=== PATIENT | female | born 2000 | race Caucasian/White ===

== ENCOUNTER 2025-01-07 10:08 | Outpatient (OUT) | payer OTHER, SELFPAY | END 2025-01-07 10:09 | disposition home or self-care (01) | LOC: PST 10:09 | PROVIDERS: PCP Nurse Practitioner Family; Visit Provider Obstetrics & Gynecology | DX: Z01.818 Encounter for other preprocedural examination (principal); R10.2 Pelvic and perineal pain; N92.1 Excessive and frequent menstruation with irregular cycle; N94.6 Dysmenorrhea, unspecified; N94.10 Unspecified dyspareunia ==

== ENCOUNTER 2025-01-17 08:26 | Day surgery (SDC) | payer OTHER, SELFPAY ==
[2025-01-07 10:38] VITALS: BP 116/81; PULSE 69; TEMP 36.3; O2SAT 99; BMI 32.4
[2025-01-17] VITALS (13 sets, daily range): BP systolic 110–138; BP diastolic 59–82; PULSE 74–100; TEMP 36–36.4; O2SAT 96–100; BMI 32.4
[2025-01-17 08:36] LABS: Basophils Percent Auto 0.3 % (0.2-2.0); Eosinophils Absolute Auto 0.2 10^3/uL (0.0-0.7); Eosinophils Percent Auto 1.5 % (0.9-7.0); Hematocrit 43.1 % (36.0-48.0); Hemoglobin 13.8 g/dL (12.0-16.0); Immature Granulocytes Abs Auto 0.04 10^3/uL (0.00-0.03); Immature Granulocytes Pct Auto 0.4 % (0.0-0.5); Lymphocytes Absolute Auto 2.5 10^3/uL (1.2-3.8); Mean Corpuscular Hemoglobin 28.3 pg (26.7-34.0); Mean Corpuscular Volume 88.3 fL (81.0-99.0); Mean Platelet Volume 10.2 fL (9.5-13.5); Monocytes Absolute Auto 0.7 10^3/uL (0.3-0.8); Monocytes Percent Auto 7.6 % (1.7-12.0); Neutrophils Absolute Auto 6.2 10^3/uL (1.4-6.5); Neutrophils Percent Auto 64.2 % (43.0-75.0); Platelet Count 256 10^3/uL (150-450); Red Blood Count 4.88 10^6/uL (4.20-5.40); Red Cell Distribution Width 13.9 % (11.0-15.0); White Blood Count 9.7 10^3/uL (4.0-11.0)
[2025-01-17 08:59] LABS: Glucometer 99 mg/dL (74-106)
[2025-01-17] MEDS: LACTATED RINGER'S SOLUTION 1,000 ML 50 ML IV ×2 (09:02→11:02)
[2025-01-17] MEDS: SCOPOLAMINE 1 MG/3 DAYS TRANSDERM PATCH 1 PATCH TD (09:11)
[2025-01-17 09:28] LABS: HCG Quantitative <1 mIU/mL
--- NOTE | 2025-01-17 11:30 | P.ON_ITS ---
Brief Operative Note Date of procedure: 01/17/25 Pre-op diagnosis general: pelvic pain Post-op diagnosis: same as pre-op Procedure: NAME OF PROCEDURE: [diagnostic laparoscopy ] PROCEDURE: The patient was taken back to the Operating Room where she was placed in dorsal lithotomy position after given general anesthesia. The patient was prepped and draped in normal sterile fashion. A sponge stick was placed into the patient's vagina. Attention was turned to the patient's abdomen, where a small umbilical incision was made. The fascia was tented using Irma clamps and the fascia was entered sharply. Confirmation of intraabdominal placement of the 10 mm port was confirmed under direct visualization using a laparoscope. The patient's abdomen was then insufflated using CO2 gas with approximately 4 liters. A second port was placed left laterally, this was done under direct visualization with a 5 mm port. Survey of the patient's abdomen demonstrated normal liver and gallbladder. Survey of the patient's pelvic anatomy demonstrated normal appearing rt and lt ovary and tubes as well as normal appearing uterus. No endometrial implants could be noted, no evidence of any pelvic disease was seen, normal appearing pelvic cavity. All instruments were removed from the patient's abdomen. The patient's abdomen was deinsufflated of CO2 gas. The patient tolerated the procedure well. Sponge stick was removed from the patient's vagina. The patient's infraumbilical fascia was closed using #0 Vicryl on a GI needle. The patient's skin was closed laterally and infraumbilically using 4-0 Vicryl. The patient tolerated the procedure well. Sponge, lap and needle counts were correct x 2. The patient was taken to Recovery Room in stable condition. Anesthesia: JOHNIE Surgeon: Omero Pickens Flight Engineer Manager: Rhiannon Schwartz Estimated blood loss (mL): 5 Pathology: none sent Condition: stable Disposition: PACU Urinary Catheter Management Urinary Catheter Management Urethral: Cath placed during this visit: no
[2025-01-17] MEDS: HYDROMORPHONE HCL 0.5 MG/0.5 ML SYRINGE IV ×2 (11:57→12:04)
--- NOTE | 2025-01-17 12:10 | PC.NURSE ---
Medicated with Dilaudid IV as ordered for pain; peripad dry
--- NOTE | 2025-01-17 12:13 | PC.NURSE ---
Medicated with Dilaudid as ordered for unchanged surgical pain
--- NOTE | 2025-01-17 12:16 | PC.NURSE ---
Ice to bilateral shoulders for c/o discomfort; peripad dry
--- NOTE | 2025-01-17 12:34 | PC.NURSE ---
Peripad dry; states shoulders feel better
[2025-01-17] MEDS: HYDROCODONE/ACET 5-325 MG TABLET 1 TAB PO (13:07)
--- NOTE | 2025-01-17 13:16 | PC.NURSE ---
Medicated with oral pain medication as ordered; peripad dry
--- NOTE | 2025-01-17 13:47 | PC.NURSE ---
Up to bathroom and voids clear yellow without difficulty; peripad dry
== END 2025-01-17 13:59 | disposition home or self-care (01) ==
PROVIDERS: PCP Nurse Practitioner Family; Visit Provider Obstetrics & Gynecology
PROC: (CPT 840; principal; 2025-01-17 09:45)
DX: R10.2 Pelvic and perineal pain (principal); N92.1 Excessive and frequent menstruation with irregular cycle; N94.6 Dysmenorrhea, unspecified; N94.10 Unspecified dyspareunia; E28.2 Polycystic ovarian syndrome
CPT/HCPCS: 49320; 36415; 82948; 84702; 85025; J1100; J1171; J1885; J2250; J2405; J2704; J3010

== ENCOUNTER 2025-03-04 12:23 | Outpatient (OUT) | payer OTHER, SELFPAY ==
[2025-03-04 12:53] LABS: Basophils Percent Auto 0.3 % (0.2-2.0); Eosinophils Absolute Auto 0.1 10^3/uL (0.0-0.7); Eosinophils Percent Auto 0.9 % (0.9-7.0); Hematocrit 41.9 % (36.0-48.0); Hemoglobin 13.6 g/dL (12.0-16.0); Immature Granulocytes Abs Auto 0.02 10^3/uL (0.00-0.03); Immature Granulocytes Pct Auto 0.3 % (0.0-0.5); Lymphocytes Absolute Auto 1.9 10^3/uL (1.2-3.8); Lymphocytes Percent Auto 24.4 % (20.5-60.0); Mean Corpuscular HGB Conc 32.5 g/dL (29.9-35.2); Mean Corpuscular Hemoglobin 28.2 pg (26.7-34.0); Mean Corpuscular Volume 86.9 fL (81.0-99.0); Mean Platelet Volume 10.8 fL (9.5-13.5); Monocytes Absolute Auto 0.6 10^3/uL (0.3-0.8); Monocytes Percent Auto 8.1 % (1.7-12.0); Neutrophils Absolute Auto 5.2 10^3/uL (1.4-6.5); Platelet Count 218 10^3/uL (150-450); Red Blood Count 4.82 10^6/uL (4.20-5.40); Red Cell Distribution Width 13.9 % (11.0-15.0); White Blood Count 7.8 10^3/uL (4.0-11.0)
[2025-03-04 13:07] LABS: Estimated Average Glucose 105 mg/dL; Glycohemoglobin A1C 5.3 % (4.5-6.2)
[2025-03-04 13:40] LABS: Free T4 1.05 ng/dL (0.76-1.46)
[2025-03-04 13:43] LABS: HCG Quantitative <1 mIU/mL
[2025-03-05 04:07] LABS: FSH 3.1 mIU/mL (.); Luteinizing Hormone(LH) 15.4 mIU/mL (.)
== END 2025-03-04 12:24 | disposition home or self-care (01) ==
LOC: LAB 12:25
PROVIDERS: PCP Nurse Practitioner Family; Visit Provider Obstetrics & Gynecology
DX: Z01.419 Encounter for gynecological examination (general) (routine) without abnormal findings (principal); E28.2 Polycystic ovarian syndrome; N93.9 Abnormal uterine and vaginal bleeding, unspecified
CPT/HCPCS: 36415; 82397; 82626; 82627; 83001; 83002; 83036; 84439; 84443; 84702; 85025; 88175

== ENCOUNTER 2025-03-04 19:55 | Outpatient (REF) | payer OTHER, SELFPAY | END 2025-03-04 19:56 | disposition home or self-care (01) | LOC: LAB 19:55 | PROVIDERS: PCP Nurse Practitioner Family; Visit Provider Obstetrics & Gynecology | DX: Z01.419 Encounter for gynecological examination (general) (routine) without abnormal findings (principal) | CPT/HCPCS: 88175 ==